=== PATIENT | female | born 1995 | race Two or more races ===

== ENCOUNTER 2020-02-17 15:09 | Emergency (ER) | payer SELFPAY ==
[2020-02-17] MEDS ORDERED: Sodium Chloride 0.9% 10 ML Syringe FLUSH PRN (15:43)
--- NOTE | 2020-02-17 15:48 | EDM.PDOC ---
ED HPI GENERAL MEDICAL PROBLEM - General Chief Complaint: BEHAVIOR SUPPORT SPECIALIST Problem Stated Complaint: NEWLY PG/CRAMPING AND BLEEDING Time Seen by Provider: 02/17/20 15:28 Source of Information: Reports: Patient, RN Notes Reviewed History Limitations: Reports: No Limitations - History of Present Illness INITIAL COMMENTS - FREE TEXT/NARRATIVE: Patient is a 24-year-old female who presents to the ED for the evaluation of some vaginal bleeding in . Patient states that her last menstrual period was December 29, so this would put her at about 6 to 7 weeks gestation , she is a G1, P0. Patient states that she is to have her first BEHAVIOR SUPPORT SPECIALIST visit at [facility] next week . She was not given a name of the OB provider she would be seeing. The patient states that 2 days ago, she was having some lower abdominal cramping and bleeding. She states that the bleeding was light initially, but now she is changing her pad twice a day, she notes this to be a maxi pad. She states that she passed a quarter size clot yesterday, and is now passing several smaller clots since that time. Patient states she has not taken anything at home for the lower abdominal cramping. This does seem to be on her left lower abdomen. The patient denies any other sick-like symptoms. Lower Abdomen Pain Score (Numeric/FACES): 6 - Related Data Allergies Allergy/AdvReac Type Severity Reaction Status Date / Time No Known Allergies Allergy Verified 02/17/20 15:26 Home Meds: Home Meds . [No Known Home Meds] 02/17/20 [History] Past Medical History - Past Health History Medical/Surgical History: Denies Medical/Surgical History BEHAVIOR SUPPORT SPECIALIST History: Reports: : 1 Para: 0 LMP (Approximate): Other (See Below) (12/29/2019) Social & Family History - Family History Family Medical History: Noncontributory - Tobacco Use Smoking Status *Q: Never Smoker Second Hand Smoke Exposure: No - Caffeine Use Caffeine Use: Reports: Soda - Recreational Drug Use Recreational Drug Use: Yes Drug Use in Last 12 Months: Yes Recreational Drug Type: Reports: Marijuana/Hashish Recreational Drug Last Use: 3 weeks ago ED ROS GENERAL - Review of Systems Review Of Systems: Comprehensive ROS is negative, except as noted in HPI. ED EXAM - Physical Exam Exam: See Below Exam Limited By: No Limitations General Appearance: Alert, WD/WN, No Apparent Distress Eye Exam: Bilateral Eye: EOMI, Normal Inspection, PERRL Ears: Normal External Exam Nose: Normal Inspection Throat/Mouth: Normal Inspection Head: Atraumatic, Normocephalic Neck: Normal Inspection Respiratory/Chest: No Respiratory Distress, Lungs Clear, Normal Breath Sounds, No Accessory Muscle Use, Chest Non-Tender Cardiovascular: Normal Peripheral Pulses, Regular Rate, Rhythm, No Murmur GI/Abdominal Exam: Normal Bowel Sounds, Soft, No Distention, No Mass, Tender ( LLQ) Heart Tones: Not [place] Movement: Not Appreciated Extremities: Normal Inspection, Normal Capillary Refill Neurological: Alert, Oriented, Normal Cognition, No Motor/Sensory Deficits Psychiatric: Normal Affect, Normal Mood Skin Exam: Warm, Dry, Intact, Normal Color, No Rash Course - Vital Signs Last Recorded V/S: Last Vital Signs Temp 98.7 F 02/17/20 15:19 Pulse 99 02/17/20 15:19 Resp 16 02/17/20 15:19 BP 128/45 L 02/17/20 15:19 Pulse Ox 98 02/17/20 15:19 - Orders/Labs/Meds Orders: Active Orders 24 hr Category Date Time Status Peripheral IV Care [RC] . DIRECTED Care 02/17/20 15:44 Ordered PATIENT RETYPE [BBK] Routine Lab 02/17/20 18:03 Ordered Sodium Chloride 0.9% [Saline Flush] Med 02/17/20 15:43 Ordered 10 ml FLUSH ASDIRECTED PRN Peripheral IV Insertion Adult [OM.PC] Stat Oth 02/17/20 15:44 Ordered Medication Orders Sodium Chloride (Saline Flush) 10 ml FLUSH ASDIRECTED PRN PRN Reason: Keep Vein Open Last Admin: 02/17/20 16:20 Dose: 10 ml Labs: Laboratory Tests 02/17/20 02/17/20 02/17/20 Range/Units 16:20 16:27 16:27 WBC 6.46 (3.98-10.04) K/mm3 RBC 4.76 (3.98-5.22) M/mm3 Hgb 9.7 L (11.2-15.7) gm/dl Hct 32.3 L (34.1-44.9) % MCV 67.9 L (79.4-94.8) fl MCH 20.4 L (25.6-32.2) pg MCHC 30.0 L (32.2-35.5) g/dl RDW Std Deviation 43.7 (36.4-46.3) fL Plt Count 369 (182-369) K/mm3 MPV 8.8 L (9.4-12.3) fl Neut % (Auto) 51.6 (34.0-71.1) % Lymph % (Auto) 35.6 (19.3-51.7) % Posey % (Auto) 11.9 (4.7-12.5) % Eos % (Auto) 0.5 L (0.7-5.8) Baso % (Auto) 0.2 (0.1-1.2) % Neut # (Auto) 3.34 (1.56-6.13) K/mm3 Lymph # (Auto) 2.30 (1.18-3.74) K/mm3 Posey # (Auto) 0.77 H (0.24-0.36) K/mm3 Eos # (Auto) 0.03 L (0.04-0.36) K/mm3 Baso # (Auto) 0.01 (0.01-0.08) K/mm3 Manual Slide Review Abnormal smear HCG, Quant 218.0 mIU/mL Blood Type A POSITIVE Meds: Medications Generic Name Dose Route Start Last Admin Trade Name Freq PRN Reason Stop Dose Admin Sodium Chloride 10 ml 02/17/20 15:43 02/17/20 16:20 Saline Flush FLUSH 10 ml ASDIRECTED PRN Administration Keep Vein Open - Re-Assessments/Exams Free Text/Narrative Re-Assessment/Exam: 02/17/20 15:51 Patient presents to the ED for the evaluation of her vaginal bleeding and . Transvaginal ultrasound will be obtained, to help establish intrauterine versus ectopic at this time, with included a CBC and a quantitative hCG and ABO Rh blood typing. 02/17/20 17:54 The patient's ultrasound did come back, and demonstrates a sac within the endocervical canal. Measuring 1.3 cm in size. No gestational sac seen within the endometrial cavity. No adnexal abnormalities identified. The findings were felt compatible with an impending miscarriage at this time. Patient's hCG is 218 which would also be supportive of an impending miscarriage. Patient's hemoglobin is slightly low at 9.7. Blood type is pending. Will await to see if she is Rh- or Rh+ and figure out a plan for discharge. 02/17/20 18:30 Patient's blood type is A+ at this time. Will discuss results with patient and discharge her home. Departure - Departure Time of Disposition: 18:31 Disposition: Home, Self-Care 01 Condition: Fair Clinical Impression: , spontaneous incomplete - Discharge Information *PRESCRIPTION DRUG MONITORING PROGRAM REVIEWED*: No *COPY OF PRESCRIPTION DRUG MONITORING REPORT IN PATIENT SHANITA: No Instructions: Miscarriage, [id number], Coping With Loss Referrals: PCP,None [Primary Care Provider] - Forms: ED Department Discharge Additional Instructions: You were evaluated in the ER today regarding your abdominal pain/vaginal bleeding in . You did have some labs drawn, and your hemoglobin is mildly low at 9.7, your hCG level was 218 , your blood type is A+. At this time we recommend that you go home and eat some hearty meals to include some red meats and green leafy vegetables to supplement your iron Your ultrasound demonstrated findings compatible with an impending miscarriage. You will experience some abdominal cramping, you may take 500 mg Tylenol or 600 mg ibuprofen for further pain relief. If you are bleeding through more than 1-2 maxi pads every couple hours, this would be cause for concern to return to the ER for immediate management. Recommend you contact the [facility] tomorrow, and request a follow-up visit with an BEHAVIOR SUPPORT SPECIALIST provider of choice. Please return to the ED at any time if your symptoms change or worsen. Sepsis Event Note - Evaluation Sepsis Screening Result: No Definite Risk - Focused Exam Vital Signs: Vital Signs Temp Pulse Resp BP Pulse Ox 02/17/20 15:19 98.7 F 99 16 128/45 L 98 Date Exam was Performed: 02/17/20 Time Exam was Performed: 18:30 - My Orders Last 24 Hours: My Active Orders 02/17/20 15:43 Sodium Chloride 0.9% [Saline Flush] 10 ml FLUSH ASDIRECTED PRN 02/17/20 15:44 Peripheral IV Care [RC] . DIRECTED Peripheral IV Insertion Adult [OM.PC] Stat 02/17/20 18:03 PATIENT RETYPE [BBK] Routine - Assessment/Plan Last 24 Hours: My Active Orders 02/17/20 15:43 Sodium Chloride 0.9% [Saline Flush] 10 ml FLUSH ASDIRECTED PRN 02/17/20 15:44 Peripheral IV Care [RC] . DIRECTED Peripheral IV Insertion Adult [OM.PC] Stat 02/17/20 18:03 PATIENT RETYPE [BBK] Routine
--- NOTE | 2020-02-17 16:44 | US ---
First trimester obstetrical ultrasound: Multiple real-time images were obtained transvaginally. Possible abnormal gestational sac within the endocervical canal. This sac measures about 1.3 cm in size. No gestational sac is seen within the endometrial cavity. No adnexal abnormalities are seen. Ovaries are within normal limits. Impression: 1. Findings which are felt compatible with impending miscarriage. Diagnostic code #3 Study was dictated in MDT
== END 2020-02-17 19:00 | disposition home or self-care (01) ==
LOC: JD.ED 15:09
DX: O03.4 Incomplete spontaneous abortion without complication (principal)
CPT/HCPCS: 36415; 76817; 76817-26; 84702; 85025; 86900; 86901; 99283; 99284-25